=== PATIENT | male | born 1970 | race Caucasian/White ===

== ENCOUNTER 2021-06-27 06:19 | Observation (INO) | payer BC ==
[~2021-06-27] VITALS: Ht 170.2 cm; Wt 77.1 kg
[2021-06-27 08:09] LABS: HEMOGLOBIN 15.9 gm/dl (14.0-17.5); RED BLOOD COUNT 4.81 M/UL (4.20-5.50); WHITE BLOOD COUNT 9.3 K/UL (4.5-11.0)
[2021-06-27 09:25] LABS: BUN/CREATININE RATIO 16 (0-10)
[2021-06-27] MEDS ORDERED: MULTIVITAMIN1 EACH PO (15:16)
[2021-06-28] MEDS ORDERED: PERCOCET 5/325 T1 EA PO (10:47)
== END 2021-06-28 12:41 | disposition home or self-care (01) ==
LOC: ER1 06:19 → MED SURG 4 14:15
PROVIDERS: Emergency Medicine; Surgery; ADMIT Surgery
PROC: 0YQ60ZZ Repair Left Inguinal Region, Open Approach (ICD-10-PCS; principal; 2021-06-27 11:48)
DX: K40.30 Unilateral inguinal hernia, with obstruction, without gangrene, not specified as recurrent (principal); K56.50 Intestinal adhesions [bands], unspecified as to partial versus complete obstruction; D17.6 Benign lipomatous neoplasm of spermatic cord; I10 Essential (primary) hypertension; F17.210 Nicotine dependence, cigarettes, uncomplicated; Z20.822 Contact with and (suspected) exposure to COVID-19; Z79.899 Other long term (current) drug therapy
CPT/HCPCS: 80053; 81001; 85025; 96374; 96375; 99285; C1781; G0378; J1100; J1885; J2001; J2250; J2270; J2405; J2704; J3010; J7030; J7120; Q9967; U0002